=== PATIENT | female | born 1980 | race Caucasian/White ===

== ENCOUNTER 2019-08-17 11:56 | Emergency (ER) | payer BC, OTHER, MEDICAID, SELFPAY ==
--- NOTE | ~2019-08-17 | XR_ITS ---
EXAMINATION: XR chest 1V portable INDICATION: Cough and shortness of breath TECHNIQUE: Portable AP chest at 1308 hours COMPARISON: 11/16/2005 FINDINGS: The lungs are free of acute opacities. There is no pleural effusion or pneumothorax. The ca rdiomediastinal silhouette is normal. The visualized bones and soft tissues are unremarkable. IMPRESSION: 1. No acute cardiopulmonary abnormality. Reviewed, dictated and finalized at location B.
[2019-08-17 11:59] VITALS: BP 141/78; PULSE 86; RESP 20; TEMP 36.8; O2SAT 100
[2019-08-17 12:08] VITALS: BP 147/86; BP 148/89; PULSE 83; PULSE 86; RESP 15; RESP 16; TEMP 37.4; O2SAT 100
--- NOTE | 2019-08-17 12:21 | ED.URI ---
HPI - URI/Sore Throat General Chief Complaint: Upper Respiratory Infection Stated Complaint: SOB x 1 week Time Seen by Provider: 08/17/19 12:08 Source: patient Mode of arrival: ambulatory Limitations: no limitations History of Present Illness HPI Narrative: Patient is a 39-year-old female who presents from her primary care physician's office for evaluation of cough and shortness of breath. Patient recently diagnosed with influenza in July, has had some continuous, chest pressure since that time. She reports worsening productive cough. No fever chills, nausea or vomiting. Patient reports difficulty in getting a deep breath. She reports symptoms are worse with exertion or when she is talking. Pain is currently dull, aching in nature over her chest. No leg swelling, leg pain, recent car or air travel. Patient does not take control. She does not smoke. No other coagulopathy or blood clot risk factors. Related Data Home Medications Medication Instructions Recorded Confirmed albuterol sulfate INHALATION 08/17/19 azithromycin 08/17/19 elagolix [Orilissa] mg 08/17/19 fluticasone propionate INTRANASAL 08/17/19 lorazepam 08/17/19 methylprednisolone mg 08/17/19 Allergies Allergy/AdvReac Type Severity Reaction Status Date / Time No Known Allergies Allergy Verified 08/17/19 13:41 Review of Systems Review of Systems: Narrative: CONSTITUTIONAL: Denies fever, chills, or sweats. EYES: Denies visual changes, redness, or discharge. ENT: Reports rhinorrhea, congestion, sore throat CARDIOVASCULAR: Reports chest pressure RESPIRATORY: Reports cough and shortness of breath GASTROINTESTINAL: Denies abdominal pain, nausea, vomiting, or diarrhea. GENITOURINARY: Denies dysuria or hematuria. SKIN: Denies rash or itching. MUSCULOSKELETAL: Denies back pain, joint pain, reports myalgias NEUROLOGIC: Denies headache, numbness, or weakness. [facility] Past Medical History Medical History (Updated 08/17/19 @ 14:45 by Patricia Bernard MD) Hypertension Surgical History Surgical History (Updated 08/17/19 @ 13:00 by Patricia Bernard MD) H/O tubal ligation Previous section Social History Social History (Updated 08/17/19 @ 13:00 by Patricia Bernard MD) Smoking status: Never smoker Alcohol intake: never Substance use: never Living arrangements: with family Gender identity (if verbalized by the patient): Female Exam Narrative: Exam Narrative: GENERAL: Awake, alert, conversant HEAD: Normocephalic, atraumatic. EYES: PERRLA and EOMI. ENT: Nares clear, no rhinorrhea or epistaxis. Mucous membranes moist. NECK: Supple. CHEST: No respiratory distress, breathing even and non labored, no hypoxemia, breath sounds are clear without wheezing or crackles HEART: Regular rate, sinus rhythm ABDOMEN:Non distended, non tender, no flank tenderness EXTREMITIES: Normal range of motion. No edema. SKIN: Warm, dry, no rash. NEURO:No focal deficits. Alert and oriented x3 Course Course Emergency Course: Patient presented for evaluation of shortness of breath and chest pain. At the time of initial assessment, ABCs are intact and vital signs are stable. Physical exam is unremarkable. Patient is well-appearing, no dyspnea on exam, no hypoxemia or increased work of breathing. Lung sounds are clear. IV access obtained and labs are drawn. EKG without acute ischemic changes, evidence of right heart strain or findings that would be concerning for PE. Laboratory work-up is reassuring. No detection in troponin. No elevation in d-dimer that would be consistent with PE. Chest x-ray is clear without evidence of pneumonia or opacities. Coronavirus markers are overall reassuring as well. At this point, patient was ambulated in the emergency department and did well without transient desaturation and oxygen levels. No recurrent abdominal pain. No flank pain. I advised that the patient is okay for discharge home, at this point her sym
--- NOTE | 2019-08-17 12:55 | ECG_ITS ---
Measurements Intervals [place] Rate: 69 P: 62 TX: 149 QRS: 35 QRSD: 93 T: 47 QT: 404 QTc: 434 Interpretive Statements SINUS RHYTHM NORMAL ECG Electronically Signed On 08-17-2019 13:16:44 CDT by Burak Obando D.O.
[2019-08-17 13:12] LABS: Basophils Percent Auto 0.6 % (0.2-1.2); Eosinophils Percent Auto 0.4 % (0-4.4); Hematocrit 44.9 % (37.0-47.0); Hemoglobin 14.6 g/dL (12.0-15.0); Immature Granulocyte Absolute 0.03 K/mm3 (0.00-0.031); Immature Granulocyte Percent A 0.4 % (0-0.5); Lymphocytes Absolute Auto 1.25 K/mm3 (0.9-3.2); Lymphocytes Percent Auto 18.2 % (18.3-44.2); Mean Corpuscular HGB Conc 32.5 g/dl (32-36); Mean Corpuscular Hemoglobin 28.4 pg (26-34); Mean Corpuscular Volume 87.4 fl (80-100); Mean Platelet Volume 10.5 fl (7.4-10.4); Monocytes Absolute Auto 0.4 K/mm3 (0.1-0.6); Neutrophils Absolute Auto 5.1 K/mm3 (1.3-6.7); Neutrophils Percent Auto 74.4 % (45.5-73.1); Platelet Count Result 230 k/mm3 (150-375); Red Blood Count 5.14 M/mm3 (4.2-5.4); Red Cell Distribution Width 13.6 % (11.5-14.5); White Blood Count 6.9 K/mm3 (4.5-10.0)
[2019-08-17 13:14] LABS: Add Urine Microscopic? NO; Appearance Urine Clear (Clear); Bilirubin Urine Negative (Negative); Blood Urine Negative (Negative); Color Urine Straw (Yellow); Glucose Urine UA Negative (Negative); Ketones Urine Negative (Negative); Leukocyte Esterase Ur Negative LEU/UL (Negative); Nitrate Urine Negative (Negative); Protein Urine Negative (Negative); Specific Grav Ur 1.011 (1.001-1.035); Urobilinogen Urine Negative mg/dL (<2.0)
[2019-08-17 13:26] LABS: Alanine Aminotransferase 23 U/L (4-35); Albumin Level 4.2 g/dL (3.5-5.1); Alkaline Phosphatase 56 U/L (38-126); Aspartate Amino Transferase 18 U/L (14-36); Bilirubin,Total 0.4 mg/dL (0.2-1.3); Blood Urea Nitrogen 16 mg/dL (7-17); CRP < 0.5 mg/dL (<1.0); Calcium 9.4 mg/dL (8.4-10.2); Carbon Dioxide 25 mmol/L (22-30); Chloride 106 mmol/L (98-107); Estimated CRCL calculation 107 ml/min; Estimated Glomerular Filt Rate > 60; Glucose 121 mg/dL (65-105); Lactate Dehydrogenase 288 U/L (313-618); Potassium 3.6 mmol/L (3.4-5.0); Sodium 139 mmol/L (137-145)
[2019-08-17 13:30] LABS: Partial Thromboplastin Time 22.4 SECONDS (22.3-36.8); Prothrombin Time 12.6 Seconds (11.1-14.7)
[2019-08-17 13:33] VITALS: BP 123/79; PULSE 71; RESP 10; O2SAT 97; O2SAT 98
[2019-08-17 13:35] LABS: Troponin I < 0.012 ng/mL (0.000-0.034)
[2019-08-17 13:52] LABS: D Dimer 0.27 ug/mL (<0.48)
[2019-08-17 15:15] VITALS: BP 132/72; PULSE 71; RESP 13; O2SAT 97
== END 2019-08-17 15:16 | disposition home or self-care (01) ==
PROVIDERS: Emergency Provider Emergency Medicine; PCP Family Medicine
DX: B34.9 Viral infection, unspecified (principal); R06.00 Dyspnea, unspecified; Z20.828 Contact with and (suspected) exposure to other viral communicable diseases; I10 Essential (primary) hypertension
CPT/HCPCS: 36415; 71045; 80053; 81003; 82728; 83615; 84484; 85025; 85380; 85610; 85730; 86140; 87081; 87880; 93005; 99284

== ENCOUNTER → 2019-12-26 09:20 | Outpatient (CLI) | payer BC, MEDICAID, SELFPAY ==
--- NOTE | ~2019-12-26 | DEXA_ITS ---
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 Exam Date: December 26, 2019 Accession number: [id number] Bone Density: Region BMD T-score Z-score Classification AP Spine (L1-L4) 1.227 1.6 1.8 Normal Femoral Neck (Left) 1.180 3.0 3.3 Normal Total Hip (Left) 1.321 3.1 3.3 Normal Femoral Neck (Right) 1.158 2.8 3.1 Normal Total Hip (Right) 1.266 2.7 2.8 Normal Total Hip Mean 1.294 2.9 3.1 Normal World Health Organization criteria for BMD impression classify patients as: Normal (T-score at or above -1.0), Osteopenia (T-score between -1.0 and -2.5), or Osteoporosis (T-score at or below -2.5). 10-year Fracture Risk: FRAX not reported because: Premenopausal woman All T-scores for Spine Total, Hip Total, Femoral Neck at or above -1.0 Clinical Information Provided by Patient: Has the following medical conditions: Asthma or Emphysema Patient maximum height was 68 Drinks caffeinated beverages Onset of menses at age 13 Premenopausal Number of children 4 Impression: The patient's bone mass is within expected range for age, gender and ethnicity. Discussion: BONE DENSITY IS WITHIN EXPECTED LIMITS FOR AGE, SEX AND RACE. Bone density is within expected limits for age, sex and race at all sites measured. The patient should follow a healthful lifestyle (good nutrition with adequate calcium and vitamin D, and appropriate weight-bearing exercise). Follow-Up: Consider repeating this study in 5 years or sooner if there is some new clinical indication. Reported by: SHARI on 12/26/2019 9:46:00 AM. Reviewed, dictated and finalized at location AMike ALVAREZ
== END ==
PROVIDERS: Visit Provider Obstetrics & Gynecology
DX: Z79.899 Other long term (current) drug therapy (principal)
CPT/HCPCS: 77080

== ENCOUNTER → 2020-01-30 11:18 | Outpatient (CLI) | payer BC, MEDICAID, SELFPAY ==
--- NOTE | ~2020-01-30 | US_ITS ---
EXAMINATION: US pelvic complete w TV DATE: 01/30/2020 12:01 INDICATION: Pelvic and peroneal pain. Patient scheduled for hysterectomy. Comparison:No prior studies for comparison. TECHNIQUE: Multiple transabdominal and endovaginal sonographic images of the pelvis performed. FINDINGS: The uterus measures 11.7 x 6 x 8 cm. There are fibroid changes in the uterus including a 1. 9 cm fibroid anteriorly in the 1 cm fibroid posteriorly. The endometrial complex measures 9 mm. The right ovary measures 2.3 x 1.6 x 2.7 cm and the left ovary measures 2.1 x 2 x 3.7 cm. There are small follicles in each ovary. There is no free fluid in the pelvis. There are no abnormal masses seen on either side. IMPRESSION: 1. Enlarged fibroid uterus. Reviewed, dictated and finalized at location A. IMPRESSION: 1. Enlarged fibroid uterus.
== END ==
PROVIDERS: PCP Family Medicine; Visit Provider Obstetrics & Gynecology
DX: R10.2 Pelvic and perineal pain (principal); D25.9 Leiomyoma of uterus, unspecified
CPT/HCPCS: 76830; 76856

== ENCOUNTER 2020-02-01 00:04 | Outpatient (CLI) | payer BC, MEDICAID, SELFPAY ==
[2020-02-01 18:02] LABS: SARS-CoV-2 RNA PCR Negative
== END 2020-02-01 00:05 | disposition home or self-care (01) ==
LOC: ANHCOVIDDT 00:04
PROVIDERS: PCP Family Medicine; Visit Provider Obstetrics & Gynecology
DX: Z01.812 Encounter for preprocedural laboratory examination (principal); Z20.828 Contact with and (suspected) exposure to other viral communicable diseases
CPT/HCPCS: 87635; C9803; U0003

== ENCOUNTER 2020-02-04 00:31 | Day surgery (SDC) | payer BC, MEDICAID, SELFPAY ==
[2020-01-28 15:23] VITALS: BMI 36.9
--- NOTE | 2020-02-01 14:50 | PM.IMHP ---
H&P: HPI History of Present Illness Date/Time: 02/01/20 14:50 Chief complaint: Endometriosis,Pelvic Pain,Menometrorrhagia Narrative: Litzy Aponte is a 39 year old female with pelvic pain that improved with orilissa, but she finished 6 months and was advised to stop. She had normal DEXA but prefers not to use orilissa off label. She has bleeding almost every day, never heavy. She also c/o deep dyspareunia Review of Systems Review of Systems: All systems reviewed & are unremarkable except as noted in HPI and below PMFSH Past Medical History Medical History Acid reflux Anxiety Asthma Carpal tunnel syndrome Depression Hyperlipidemia Hypertension Irritable bowel syndrome Vaginal delivery X2 08/2005 Full term male 6lbs 12.5oz 06/2004 Pre term male SAB or demise. Pt. only documented that it was PT and male Surgical History Surgical History H/O tubal ligation History of ankle surgery Previous section X2 02/2007 male 10lbs 10oz 02/2009 male 9lbs 5oz Family History Family History Mother Breast cancer Hypertension Grandparent Breast cancer Other Breast cancer Social History Social History Smoking status: Never smoker Alcohol intake: never Substance use: never Gender identity (if verbalized by the patient): Female Spiritual care concerns: No Meds Home Medications and Allergies Home Medications Medication Instructions Recorded Confirmed Type fluticasone propionate 1 spray INTRANASAL DAILY 08/17/19 01/28/20 History lorazepam 0.5 mg PO DAILY PRN 08/17/19 01/28/20 History albuterol sulfate 90 mcg/actuation 1 inhalation INHALATION Q4H PRN 12/13/19 01/28/20 History aerosol inhaler levocetirizine 5 mg tablet 5 mg PO DAILY 12/13/19 01/28/20 History mometasone 50 mcg/actuation nasal 2 spray NASAL DAILY 01/25/20 01/28/20 History spray ascorbic acid (vitamin C) [Vitamin 1 g PO DAILY 01/28/20 01/28/20 History C] atorvastatin 40 mg PO QPM 01/28/20 01/28/20 History cholecalciferol (vitamin D3) 125 mcg PO DAILY 01/28/20 01/28/20 History [Vitamin D3] cyanocobalamin (vitamin B-12) 500 mcg PO DAILY 01/28/20 01/28/20 History [Vitamin B-12] montelukast 10 mg PO DAILY 01/28/20 01/28/20 History zinc 25 mg PO DAILY 01/28/20 01/28/20 History Allergies Allergy/AdvReac Type Severity Reaction Status Date / Time No Known Allergies Allergy Verified 01/28/20 15:23 Exam Const: General: no acute distress Resp: Auscultation: clear to auscultation bilaterally Cardio: Rate: regular rate Rhythm: regular rhythm GI: Inspection: non-distended GI Palp: Yes Soft to palpation and No Tenderness to palpation present (GI) : Other: Uterus normal size, nontender, mobile, smooth. Adnexal nontender with no masses Psych: Mental Status: mental status grossly normal Assessment and Plan Assessment and plan (1) Endometriosis: Code(s): N80.9 - Endometriosis, unspecified Status: Acute Assessment and Plan: She opts for TLH/BSO and signed consent after risks, benefits, complications, and alternatives discussed. She is aware removing ovaries will put her into menopause. She expressed understanding and wishes to proceed. (2) Menometrorrhagia: Code(s): N92.1 - Excessive and frequent menstruation with irregular cycle Status: Acute (3) Deep dyspareunia: Code(s): N94.12 - Deep dyspareunia Status: Acute
[2020-02-04] VITALS (14 sets, daily range): BP systolic 109–135; BP diastolic 58–95; PULSE 54–81; RESP 12–20; TEMP 36.5–37; O2SAT 92–100
--- NOTE | 2020-02-04 11:17 | WPDANESEPPF ---
Anes - Initial Pre Proc Eval Procedure: Operation Date: 02/04/20 14:00 Proposed Procedures p Total Laparoscopic Hysterectomy With Bilateral Salpingo-Oophorectomy - Diane Sheffield MD Date/Time: 02/04/20 11:17 Surgeon: Diane Sheffield MD Pre Op Diagnosis: Endometriosis,Pelvic Pain,Menometrorrhagia Patient Data Age: 39 Gender: F Height: 5 ft 7 in Weight: 107.05 kg Allergies Allergy/AdvReac Type Severity Reaction Status Date / Time No Known Allergies Allergy Verified 02/11/20 08:50 Home Medications Medication Instructions Recorded Confirmed Type fluticasone propionate 1 spray INTRANASAL DAILY 08/17/19 02/04/20 History lorazepam 0.5 mg PO DAILY PRN 08/17/19 02/04/20 History albuterol sulfate 90 mcg/actuation 1 inhalation INHALATION Q4H PRN 12/13/19 02/04/20 History aerosol inhaler levocetirizine 5 mg tablet 5 mg PO DAILY 12/13/19 02/04/20 History mometasone 50 mcg/actuation nasal 2 spray NASAL DAILY 01/25/20 01/28/20 History spray ascorbic acid (vitamin C) [Vitamin 1 g PO DAILY 01/28/20 02/04/20 History C] atorvastatin 40 mg PO QPM 01/28/20 02/04/20 History cholecalciferol (vitamin D3) 125 mcg PO DAILY 01/28/20 02/04/20 History [Vitamin D3] cyanocobalamin (vitamin B-12) 500 mcg PO DAILY 01/28/20 02/04/20 History [Vitamin B-12] montelukast 10 mg PO DAILY 01/28/20 01/28/20 History zinc 25 mg PO DAILY 01/28/20 01/28/20 History hydrocodone-acetaminophen 1 tab PO Q4H PRN #30 tablet 02/05/20 Rx ibuprofen 600 mg PO Q6H PRN #60 tablet 02/05/20 Rx estradiol 1 mg tablet 1 mg PO DAILY #90 tablet 02/07/20 Rx sulfamethoxazole 800 1 tablet PO Q12H #14 tablet 02/18/20 Rx mg-trimethoprim 160 mg tablet Patient hx anesthesia problems: none Family hx anesthesia problems: none PMFSH Past Medical History Medical History Acid reflux Anxiety Asthma Carpal tunnel syndrome Depression Hyperlipidemia Hypertension Irritable bowel syndrome Vaginal delivery X2 08/2005 Full term male 6lbs 12.5oz 06/2004 Pre term male SAB or demise. Pt. only documented that it was PT and male Surgical History Surgical History H/O tubal ligation History of ankle surgery Previous section X2 02/2007 male 10lbs 10oz 02/2009 male 9lbs 5oz Family History Family History Mother Breast cancer Hypertension Grandparent Breast cancer Other Breast cancer Social History Social History Smoking status: Never smoker Alcohol intake: never Substance use: never Gender identity (if verbalized by the patient): Female Spiritual care concerns: No Anes - Eval Final PreProcedure Day of Procedure 02/04/20 11:17 Patient weight: obese Heart: regular rate and rhythm Lungs: clear to auscultation Airway: Mallampati scale class II Neurological: alert and oriented Last oral intake: >/= 8 hours ASA classification: III Emergent: no Anesthetic plan: proceed Anesthesia type and monitoring: general ETT and standard monitoring Informed Consent: The patient's anesthetic plan and its attendant risks and benefits were discussed with the patient/family/POA. Questions were solicited and answers provided to the satisfaction of the patient/family/POA.
--- NOTE | 2020-02-04 12:55 | WPDHPUPDATE1 ---
History and Physical Update Update Date/Time: 02/04/20 12:55 History and Physical has been reviewed, including an updated exam of the patient. There are NO changes in the patient's condition. Risks, benefits, and alternatives have been discussed and questions answered. Patient agrees to proceed with procedure.
[2020-02-04] MEDS: ACETAMINOPHEN 500 MG TABLET 1000 MG PO (13:07)
[2020-02-04] MEDS: KETOROLAC 15 MG/ML VIAL (*BKC) IV PUSH (13:07)
[2020-02-04] MEDS: LACTATED RINGERS 1,000 ML 30 ML IV CONT ×2 (13:07→15:23)
[2020-02-04] MEDS: ceFAZolin 2 GM/D5W 50 ML 2 GM/50 ML BAG IVPB (13:27)
[2020-02-04] MEDS: BUPIVACAINE/EPINEPHRINE 0.5% 10 ML VIAL 30 ML INFILTRATE (14:08)
--- NOTE | 2020-02-04 15:11 | PM.PROC ---
Procedure Note - Detailed Date of procedure: 02/04/20 Pre-op diagnosis: Endometriosis,Pelvic Pain,Menometrorrhagia Post-op diagnosis: same Procedure performed: TLH/BSO Description of procedure: She was taken to the operating room where general anesthesia was obtained. She was prepared and draped in the normal sterile fashion in the dorsal lithotomy position. Marcaine was injected supraumbilically. A 5 mm skin incision was made in the supraumbilical fold with a scalpel. A 5 mm non bladed trocar was placed with the camera in the trocar under direct visualization into the peritoneal cavity. Insufflation was begun and she was placed in Trendelenburg. A 10 mm trocar was placed in the right lower quadrant under direct visualization. Another 5 mm trocar was placed in the left lower quadrant under direct visualization. Inspection of the pelvis revealed the findings as noted above. The right infundibulopelvic ligament was grasped coagulated and transected using the Harmonic scalpel. The mesial salpinx was serially clamped and transected. The right round ligament was clamped and transected. The bladder flap was then created from the right side. Next the left infundibulopelvic ligament nasal salpinx and round ligaments were all clamped coagulated and transected using the Harmonic scalpel. The bladder flap was created from the left side meeting the flap from the right. The bladder was pushed down further with a laparoscopic Kittner. The bladder flap was created even further using the Harmonic scalpel. The right uterine artery was skeletonized clamped coagulated and transected with excellent hemostasis visualized. Another several bites were taken down the broad ligament until the level of the uterosacral ligament had been reached. The left uterine artery was then skeletonized clamped coagulated and transected using the Harmonic scalpel. The broad ligament was serially clamped and transected on the left side until the level of the uterosacral ligament had been reached. Both uterosacral ligaments were divided partially. Sponge stick was placed in the vagina and pressed against the anterior cul-de-sac. The Harmonic scalpel was used to make a colpotomy incision against the sponge stick. The vagina was then circumferentially incised hugging against the cervix until the entire cervix was freed from the surrounding vaginal tissue. The pelvis was irrigated. Hemostasis was assured. The cervix and uterus were pressed down as far as possible into the vaginal canal. Attention was then turned to the vagina. A speculum was placed. The cervix was grasped with a single-tooth tenaculum. The uterus cervix tubes and ovaries were all brought together through the vagina without difficulty. A moist blue towel was then placed in the vagina to help hold in pneumoperitoneum. Attention was turned back to the abdomen. The vaginal cuff was closed using 0 Vicryl interrupted sutures. A total of 3 sutures were used for reapproximation. The pelvis was copiously irrigated. All operative sites were noted to be hemostatic. The right lower quadrant trocar was removed. The Rocco-Angel device along with an 0 Vicryl was used to close the fascia of the right lower quadrant incision. The pneumoperitoneum was allowed to escape. All trocars were removed. All skin incisions were closed using 4 0 Monocryl in subcuticular fashion. She tolerated the procedure well. Sponge, lap, needle, and instrument counts were correct x2. She was taken to the recovery room in stable condition. Anesthesia: GETA Surgeon: Diane Sheffield MD Estimated blood loss (mL): 100 Drains: Yes (Curran) Packing: No Pathology: yes Complications: No immediate complications Condition: stable Disposition: PACU Findings: Enlarged uterus, normal tubes/ovaries, liver, appendix. Adhesions of omentum to anterior abdominal wall
[2020-02-04] MEDS: fentaNYL CITRATE INJ (*CRX) 100 MCG/2 ML VIAL 25 MCG IV PUSH ×2 (15:50→15:58)
[2020-02-04] MEDS: diphenhydrAMINE HCl INJ 50 MG/ML VIAL 25 MG IV PUSH (16:17)
--- NOTE | 2020-02-04 16:30 | PC.NURSE ---
This patient, Litzy Aponte, was received from PACU on 02/04/20 at 1630. Personal belongings list checked and signed. Patient/family oriented to unit policies and routines
[2020-02-04] MEDS: DEXTROSE 5%/LACTATED RINGERS 1,000 ML 125 ML IV CONT (16:41)
[2020-02-04] MEDS: METOCLOPRAMIDE HCL INJ 10 MG/2 ML VIAL IV PUSH (17:25)
[2020-02-04] MEDS: MORPHINE SULFATE (*CRX) 4 MG/ML INJ IV PUSH ×2 (17:28→22:16)
[2020-02-04] MEDS: KETOROLAC 30 MG/ML VIAL (*BKC) IV PUSH (19:45)
[2020-02-04] MEDS: ONDANSETRON INJ 4 MG/2 ML VIAL IV PUSH (19:46)
[2020-02-04] MEDS: ENOXAPARIN 40 MG/0.4 ML SYRINGE SUB-Q (19:46)
[2020-02-05 00:18] VITALS: BP 107/65; PULSE 63; RESP 18; TEMP 36.7; O2SAT 98
[2020-02-05] MEDS: HYDROcodone/acetaminophen (*CRX) 5-325 MG TABLET 1 TAB PO ×2 (05:24→08:48)
[2020-02-05 05:50] LABS: Basophils Percent Auto 0.4 % (0.2-1.2); Eosinophils Percent Auto 0.4 % (0-4.4); Hematocrit 39.4 % (37.0-47.0); Hemoglobin 12.8 g/dL (12.0-15.0); Immature Granulocyte Absolute 0.02 K/mm3 (0.00-0.031); Immature Granulocyte Percent A 0.3 % (0-0.5); Lymphocytes Absolute Auto 1.56 K/mm3 (0.9-3.2); Lymphocytes Percent Auto 21.9 % (18.3-44.2); Mean Corpuscular HGB Conc 32.5 g/dl (32-36); Mean Corpuscular Hemoglobin 29.2 pg (26-34); Mean Corpuscular Volume 89.7 fl (80-100); Mean Platelet Volume 11.6 fl (7.4-10.4); Monocytes Absolute Auto 0.6 K/mm3 (0.1-0.6); Monocytes Percent Auto 7.9 % (2.6-8.5); Neutrophils Absolute Auto 4.9 K/mm3 (1.3-6.7); Neutrophils Percent Auto 69.1 % (45.5-73.1); Platelet Count Result 201 k/mm3 (150-375); Red Blood Count 4.39 M/mm3 (4.2-5.4); Red Cell Distribution Width 13.4 % (11.5-14.5); White Blood Count 7.1 K/mm3 (4.5-10.0)
[2020-02-05 06:06] LABS: Anion Gap 2 mmol/L (8-16); Blood Urea Nitrogen 9 mg/dL (7-17); Calcium 8.4 mg/dL (8.4-10.2); Carbon Dioxide 29 mmol/L (22-30); Chloride 106 mmol/L (98-107); Estimated CRCL calculation 135 ml/min; Estimated Glomerular Filt Rate > 60; Glucose 100 mg/dL (65-105); Potassium 3.9 mmol/L (3.4-5.0); Sodium 137 mmol/L (137-145)
--- NOTE | 2020-02-05 07:43 | PM.GYNPNOP ---
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: Procedures Operation Date: 02/04/20 14:00 Actual Procedures Side Surgeon p Total Laparoscopic Hysterectomy With Bilateral Salpingo-Oophorectomy Bilateral Diane Sheffield MD Postoperative day: 1 (s/p hysterectomy) Postoperative status: doing well Postoperative plan: routine post-op care and discharge (and follow up in office in 1 week) Time Spent With Patient Time: Total time spent is greater than 50% in coordination of care (as documented) at patient's floor/unit and/or counseling patient: Time with patient: less than 15 minutes [employer] TE[employer]ER- PN:Subj Post-Op Subjective Date/time seen: 02/05/20 07:43 Subjective: patient has no complaints, pain is well controlled and other (Tolerating regular diet. + flatus. 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 Vital Signs Vital Signs: Vital Signs - 24 hr 02/04/20 13:17 02/04/20 15:23 02/04/20 15:30 Temperature 36.5 C 37.0 C Pulse Rate 81 75 67 Respiratory Rate 18 14 14 Blood Pressure 133/60 114/59 L 133/95 H Pulse Oximetry 99 100 100 02/04/20 15:45 02/04/20 16:00 02/04/20 16:15 Temperature Pulse Rate 64 54 L 69 Respiratory Rate 16 12 12 Blood Pressure 109/58 L 109/58 L 127/70 Pulse Oximetry 100 100 99 02/04/20 16:30 02/04/20 16:45 02/04/20 17:00 Temperature 36.8 C Pulse Rate 60 60 63 Respiratory Rate 16 18 18 Blood Pressure 132/82 135/81 131/78 Pulse Oximetry 96 97 92 02/04/20 17:15 02/04/20 17:30 02/04/20 18:00 Temperature Pulse Rate 62 62 57 L Respiratory Rate 20 18 20 Blood Pressure 128/72 133/77 114/68 Pulse Oximetry 97 94 95 02/04/20 19:00 02/04/20 20:25 02/05/20 00:18 Temperature 36.5 C 36.7 C Pulse Rate 65 65 63 Respiratory Rate 18 16 18 Blood Pressure 125/72 125/72 107/65 Pulse Oximetry 98 98 98 Intake/Output Intake/Output: Intake & Output 02/02/20 02/03/20 02/04/20 02/05/20 23:59 23:59 23:59 23:59 Intake Total 650 1000 Output Total 100 1500 Balance 550 -500 Meds/Results Medications: Active Medications Generic Name Dose Route Start Last Admin Trade Name Freq PRN Reason Stop Dose Admin Hydrocodone Bitart/Acetaminophen 1 tab 02/04/20 16:23 02/05/20 05:24 Magnet 5-325 Mg PO 1 tab Q3H PRN Administration Pain Rated 5 or Less Albuterol 1 puff 02/04/20 16:23 Proventil Hfa INHALATION Q4H PRN Shortness Of Breath Ascorbic Acid 1,000 mg 02/05/20 09:00 Vitamin C PO DAILY [facility] Atorvastatin Calcium 40 mg 02/04/20 18:00 02/04/20 20:37 Lipitor PO Not Given QPM [facility] Cyanocobalamin 500 mcg 02/05/20 09:00 Vitamin B-12 Tab PO DAILY [facility] Docusate Sodium 100 mg 02/04/20 17:00 02/04/20 18:47 Colace Capsule PO Not Given BID [facility] Enoxaparin Sodium 40 mg 02/04/20 21:00 02/04/20 19:46 Lovenox SUB-Q 40 mg DAILY [facility] Administration Estradiol 1 mg 02/05/20 09:00 Estrace PO QAM [facility] Fluticasone Propionate 1 spray 02/05/20 09:00 Flonase 0.05% Nasal Freedom NASAL DAILY [facility] Dextrose/Lactated Ringer's 1,000 mls @ 125 mls/hr 02/04/20 16:23 02/05/20 04:03 Dextrose 5%/Lactated Ringers IV CONT Not Given .Q8H JENNIE Ibuprofen 600 mg 02/04/20 16:23 Motrin PO Q6H PRN Cramping Ketorolac Tromethamine 30 mg 02/04/20 16:23 02/04/20 19:45 Toradol Inj IV PUSH 02/09/20 16:24 30 mg Q6H PRN Administration Pain Rated 4-6 Lorazepam 0.5 mg 02/04/20 16:23 Ativan Tablet PO DAILY PRN Anxiety Metoclopramide HCl 10 mg 02/04/20 16:23 02/04/20 17:25 Reglan IV PUSH 10 mg Q6H PRN Administration Nausea Montelukast Sodium
--- NOTE | 2020-02-05 07:44 | P.DS_ITS ---
DS: Admitting Diagnosis Admitting Diagnosis Admitting Diagnosis: Endometriosis,Pelvic Pain,Menometrorrhagia DS: Discharge Diagnosis Discharge Diagnosis (1) Endometriosis: Code(s): N80.9 - Endometriosis, unspecified Status: Acute DS: Summary Status at Discharge Functional status at discharge: independent ambulation Overall status at discharge: patient is progressing back to baseline Time Spent with Patient Time attestation: Total time spent providing and/or coordinating discharge services: Time spent: Less than 30 minutes DS: Data Data Completed and Pending Pending studies at discharge: Pending at discharge 02/04/20 14:49 Surgical [PTH] Routine Labs on day of discharge: Labs from last 24 hours 02/05/20 02/05/20 05:08 05:08 WBC 7.1 RBC 4.39 Hgb 12.8 Hct 39.4 MCV 89.7 MCH 29.2 MCHC 32.5 RDW 13.4 Plt Count 201 MPV 11.6 H Immature Gran % (Auto) 0.3 Neut % (Auto) 69.1 Lymph % (Auto) 21.9 [place] % (Auto) 7.9 Eos % (Auto) 0.4 Baso % (Auto) 0.4 Lymph # (Auto) 1.56 [place] # (Auto) 0.6 Eos # (Auto) 0.0 Baso # (Auto) 0.0 Abs Immat Gran (auto) 0.02 Absolute Neuts (auto) 4.9 Absolute Nucleated RBC 0.0 Nucleated RBC % 0.0 Sodium 137 Potassium 3.9 Chloride 106 Carbon Dioxide 29 Anion Gap 2 L BUN 9 D Creatinine 0.60 L Estim Creat Clear Calc 135 Estimated GFR > 60 Glucose 100 Calcium 8.4 Discharge Plan Discharge Patient Disposition: Home, Self-Care Stand Alone Forms: General Discharge Instructions Follow-up/Referrals: Diane Sheffield MD [Physician] - 1 Week Discharge Medications: New hydrocodone-acetaminophen 5-325 mg Tablet 1 tab PO Q4H PRN (Reason: Pain Rated 5 Or Less) Qty: 30 RF: 0 ibuprofen 600 mg Tablet 600 mg PO Q6H PRN (Reason: Cramping) Qty: 60 RF: 0 Continued mometasone [Nasonex] 50 mcg/actuation spray,non-aerosol 2 spray NASAL DAILY RF: 0 levocetirizine [Xyzal] 5 mg tablet 5 mg PO DAILY RF: 0 albuterol sulfate [ProAir HFA] 90 mcg/actuation HFA aerosol inhaler 1 inhalation INHALATION Q4H PRN (Reason: Shortness Of Breath) RF: 0 lorazepam 0.5 mg tablet 0.5 mg PO DAILY PRN (Reason: Anxiety) RF: 0 fluticasone propionate 50 mcg/actuation spray,suspension 1 spray INTRANASAL DAILY RF: 0 atorvastatin 40 mg tablet 40 mg PO QPM RF: 0 montelukast 10 mg tablet 10 mg PO DAILY RF: 0 ascorbic acid (vitamin C) [Vitamin C] 1,000 mg Tablet 1 g PO DAILY RF: 0 cyanocobalamin (vitamin B-12) [Vitamin B-12] 500 mcg Tablet 500 mcg PO DAILY RF: 0 zinc 50 mg Tablet 25 mg PO DAILY RF: 0 cholecalciferol (vitamin D3) [Vitamin D3] 125 mcg (5,000 unit) Tablet 125 mcg PO DAILY RF: 0 Primary Care Provider: Jose,Kori Santiago Attending physician on admission: Diane Sheffield Quality VTE Prophylaxis VTE prophylaxis: mechanical ordered and pharmacologic ordered
[2020-02-05 08:35] VITALS: BP 112/59; PULSE 51; RESP 16; TEMP 37.3; O2SAT 100
[2020-02-05] MEDS: estradioL 1 MG TABLET PO (08:48)
[2020-02-05] MEDS: DOCUSATE SODIUM 100 MG CAPSULE PO (08:48)
[2020-02-05] MEDS: IBUPROFEN 600 MG TABLET PO (08:49)
[2020-02-05] MEDS: LORATADINE 10 MG TABLET PO (10:36)
[2020-02-05] MEDS: SIMETHICONE 80 MG TAB.CHEW PO (11:18)
== END 2020-02-05 12:39 | disposition home or self-care (01) ==
LOC: ANHSURGERY 12:03 → ANHOB2 16:24
PROVIDERS: PCP Family Medicine; Visit Provider Obstetrics & Gynecology
PROC: 0UT9FZZ Resection of Uterus, Via Natural or Artificial Opening With Percutaneous Endoscopic Assistance (ICD-10-PCS; CPT 58571; principal; 2020-02-04 14:00)
DX: N80.0 Endometriosis of uterus (principal); N92.1 Excessive and frequent menstruation with irregular cycle; N94.12 Deep dyspareunia; E78.5 Hyperlipidemia, unspecified; I10 Essential (primary) hypertension; K58.9 Irritable bowel syndrome, unspecified; N83.8 Other noninflammatory disorders of ovary, fallopian tube and broad ligament; N83.02 Follicular cyst of left ovary; N83.01 Follicular cyst of right ovary
CPT/HCPCS: 58571; 36415; 80048; 85025; 88307; 99199; A9270; J0690; J1100; J1170; J1200; J1650; J1885; J2250; J2270; J2370; J2405; J2704; J2710; J2765; J3010; J7030; J7120; J7121

== ENCOUNTER 2020-04-07 10:22 | Outpatient (NON) | payer BC, MEDICAID, SELFPAY ==
[2020-04-08 19:16] LABS: SARS-CoV-2 RNA PCR Negative
== END 2020-04-07 10:23 ==
PROVIDERS: PCP Family Medicine; Visit Provider Family Medicine
DX: R50.9 Fever, unspecified (principal); Z20.828 Contact with and (suspected) exposure to other viral communicable diseases
CPT/HCPCS: 87635; C9803; U0003

== ENCOUNTER 2020-05-23 10:33 | Outpatient (CLI) | payer BC, MEDICAID, SELFPAY ==
--- NOTE | ~2020-05-23 | MM_ITS ---
EXAMINATION: MM screening [facility] BI w aj HISTORY: Screening TECHNIQUE: Craniocaudal and mediolateral oblique 3-D tomosynthesis images were obtained and synthetic 2-D images were generated. CAD analysis was submitted and interpreted. COMPARISON: Comparison to multiple prior studies sequentially, with oldest reviewed study dated 12/2012. BREAST PARENCHYMAL COMPOSITION: There are scattered areas of fibroglandular density. FINDINGS: There is no evidence of suspicious mass, calcification, or architectural distortion to sugg est malignancy in either breast. There has been no suspicious interval change. IMPRESSION: 1. No mammographic evidence of malignancy. 2. Recommend routine screening mammography in one year. BI-RADS Category 1: Negative Reviewed, dictated and finalized at location A. ENT ADMITTING REPRESENTATIVE
== END 2020-05-23 10:34 | disposition home or self-care (01) ==
LOC: ANHIMG 10:37
PROVIDERS: PCP Family Medicine; Visit Provider Obstetrics & Gynecology
DX: Z12.31 Encounter for screening mammogram for malignant neoplasm of breast (principal)
CPT/HCPCS: 77063; 77067

== ENCOUNTER 2021-01-02 12:06 | Emergency (ER) | payer BC, MEDICAID, SELFPAY ==
--- NOTE | ~2021-01-02 | CT_ITS ---
EXAMINATION: CTA chest PE protocol DATE: 01/02/2021 16:12 INDICATION: Medial chest pain and shortness of breath TECHNIQUE: Computed tomography (CT) pulmonary angiogram of the chest was performed with 100 mL Omnipa que-350 intravenous contrast. Additional 3D reconstructions utilizing coronal maximum intensity proje ction (MIP) were performed. Iterative reconstruction technique was employed. The dose-length product was 953.32 mGy-cm. COMPARISON: None FINDINGS: Excellent contrast opacification of the pulmonary arteries. There is mild streak artifact from dense contrast in the superior vena cava and right atrium. Mild scattered respiratory motion artifact which does not significantly limit evaluation. No pulmonary embolism. Subtle mosaic attenuation with regio ns of more lucent air trapping most prominent at the anteromedial left apex consistent with small air way disease. No pneumonia, pulmonary edema or pleural effusion or pneumothorax. Heart size is normal. No pericardial effusion. Thoracic aorta is normal in caliber with no dissection. No pathologically e nlarged thoracic lymphadenopathy. 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 Visualized upper abdomen is otherwise unremarkable. Bones are unremarka ble. IMPRESSION: 1. No pulmonary embolism. 2. Small regions of subsegmental air trapping consistent with small airway disease including asthma. 3. 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 Reviewed, dictated and finalized at location B. IMPRESSION: 1. No pulmonary embolism. 2. Small regions of subsegmental air trapping consistent with small airway dise ase including asthma. 3. 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
--- NOTE | ~2021-01-02 | XR_ITS ---
EXAMINATION: XR chest 2V EXAM DATE: 01/02/2021 12:39 INDICATION: Chest pain and tightness. TECHNIQUE: Frontal and lateral projections of the chest obtained and reviewed. Comparison is made to prior examination from 08/17/2019. FINDINGS: The lungs are clear. There are no pleural effusions. The cardiomediastinal silhouette is within normal limits. There is no pneumothorax suspected. The bones and soft tissues are unremarkab le. IMPRESSION: No acute cardiopulmonary findings. Reviewed, dictated and finalized at location A.
[2021-01-02 12:10] VITALS: BP 158/98; PULSE 68; RESP 12; TEMP 36.6; O2SAT 99
--- NOTE | 2021-01-02 12:15 | PC.NURSE ---
during initial assessment, pt found to be high risk for suicide. ed charge made aware. necessary precautions taken.
--- NOTE | 2021-01-02 12:18 | ED.CHESTPAIN ---
HPI - Chest Pain General Chief Complaint: Chest Pain Stated Complaint: CP Time Seen by Provider: 01/02/21 12:10 Source: patient Mode of arrival: ambulatory Limitations: no limitations History of Present Illness HPI narrative: Patient is a 40-year-old female complaining of chest pain, midsternal, sharp, 5 out of 10, worse with deep inspiration that started 2 weeks ago. Patient denies any shortness of breath, abdominal pain, nausea, vomiting, diaphoresis, fever or chills. Related Data Home Medications Medication Instructions Recorded Confirmed fluticasone propionate 1 spray INTRANASAL DAILY 08/17/19 12/19/20 lorazepam 0.5 mg PO DAILY PRN 08/17/19 12/19/20 albuterol sulfate 90 mcg/actuation 1 inhalation INHALATION Q4H PRN 12/13/19 12/19/20 aerosol inhaler levocetirizine 5 mg tablet 5 mg PO DAILY 12/13/19 12/19/20 atorvastatin 40 mg PO QPM 01/28/20 12/19/20 sertraline 100 mg tablet 150 mg PO DAILY 12/19/20 12/19/20 Allergies Allergy/AdvReac Type Severity Reaction Status Date / Time No Known Allergies Allergy Verified 01/02/21 12:20 Review of Systems Review of Systems: All systems reviewed & are unremarkable except as noted in HPI and below Constitutional: Constitutional: Denies body ache(s), Denies chills, Denies excessive sweating, Denies fatigue, Denies fever(s), Denies headache(s), Denies lethargy, Denies malaise, Denies weakness and Denies weight loss Eyes: Eyes: Denies blurry vision, Denies change in vision and Denies loss of vision ENT: Denies dizziness, Denies ear discharge, Denies headache(s), Denies lip swelling, Denies epistaxis, Denies nasal congestion, Denies neck pain, Denies throat swelling and Denies tongue swelling Cardiovascular: Cardiovascular: Denies diaphoresis, Denies rapid heart rate, Denies edema, Denies irregular heart rhythm, Denies lightheadedness, Denies palpitations, Denies dyspnea and Denies dyspnea on exertion Respiratory: Respiratory: Denies chest congestion, Denies cough, Denies hemoptysis, Denies dyspnea and Denies dyspnea on exertion Gastrointestinal: Gastrointestinal: Denies abdominal pain, Denies melena, Denies hematochezia, Denies diarrhea, Denies nausea, Denies vomiting and Denies hematemesis Musculoskeletal: Musculoskeletal: Denies abnormal gait, Denies deformity, Denies joint swelling, Denies limited range of motion, Denies neck pain and Denies numbness Neurologic: Denies Abnormal speech present, Denies abnormal gait, Denies confusion, Denies dizziness, Denies headache(s), Denies focal weakness, Denies loss of vision, Denies numbness, Denies Other visual disturbances, Denies Sensory deficit (Neuro) and Denies weakness Psychiatric: Psychiatric: Denies confusion, Denies depression, Denies auditory hallucinations, Denies homicidal ideation and Denies suicidal ideation Endocrine: Endocrine: Denies cold intolerance, Denies excessive sweating, Denies fatigue, Denies heat intolerance and Denies palpitations Hematologic/Lymphatic: Hematologic/Lymphatic: Denies easy bleeding and Denies easy bruising Allergic/Immunologic: Allergic/Immunologic: Denies lip swelling, Denies throat swelling and Denies tongue swelling PMFSH Past Medical History Medical History Acid reflux Anxiety Asthma Carpal tunnel syndrome Depression Hyperlipidemia Hypertension Irritable bowel syndrome Vaginal delivery X2 08/2005 Full term male 6lbs 12.5oz 06/2004 Pre term male SAB or demise. Pt. only documented that it was PT and male Surgical History Surgical History H/O total hysterectomy H/O tubal ligation History of ankle surgery Previous section X2 02/2007 male 10lbs 10oz 02/2009 male 9lbs 5oz Family History Family History Mother Breast cancer Hypertension Grandparent Breast cancer Other Breast cancer Social
[2021-01-02 12:49] LABS: Basophils Percent Auto 0.3 % (0.2-1.2); Eosinophils Percent Auto 0.3 % (0-4.4); Hematocrit 45.5 % (37.0-47.0); Hemoglobin 14.8 g/dL (12.0-15.0); Immature Granulocyte Absolute 0.03 K/mm3 (0.00-0.031); Immature Granulocyte Percent A 0.3 % (0-0.5); Lymphocytes Absolute Auto 2.87 K/mm3 (0.9-3.2); Lymphocytes Percent Auto 26.7 % (18.3-44.2); Mean Corpuscular HGB Conc 32.5 g/dl (32-36); Mean Corpuscular Hemoglobin 28.3 pg (26-34); Mean Platelet Volume 10.7 fl (7.4-10.4); Monocytes Absolute Auto 0.8 K/mm3 (0.1-0.6); Monocytes Percent Auto 7.2 % (2.6-8.5); Neutrophils Percent Auto 65.2 % (45.5-73.1); Platelet Count Result 256 k/mm3 (150-375); Red Blood Count 5.23 M/mm3 (4.2-5.4); Red Cell Distribution Width 13.6 % (11.5-14.5); White Blood Count 10.7 K/mm3 (4.5-10.0)
[2021-01-02 12:57] LABS: Alanine Aminotransferase 19 U/L (4-35); Albumin Level 4.3 g/dL (3.5-5.1); Alkaline Phosphatase 72 U/L (38-126); Anion Gap 7 mmol/L (8-16); Aspartate Amino Transferase 21 U/L (14-36); Bilirubin,Total 0.4 mg/dL (0.2-1.3); Blood Urea Nitrogen 15 mg/dL (7-17); Calcium 9.1 mg/dL (8.4-10.2); Carbon Dioxide 25 mmol/L (22-30); Chloride 107 mmol/L (98-107); Estimated CRCL calculation 146 ml/min; Estimated Glomerular Filt Rate > 60; Glucose 104 mg/dL (65-110); Potassium 3.5 mmol/L (3.4-5.0); Sodium 139 mmol/L (137-145)
[2021-01-02 13:08] LABS: Troponin I < 0.012 ng/mL (0.000-0.034)
[2021-01-02 13:17] LABS: D Dimer 0.94 ug/mL (<0.48)
--- NOTE | 2021-01-02 13:48 | ECG_ITS ---
Measurements Intervals [place] Rate: 68 P: 65 VT: 147 QRS: 48 QRSD: 95 T: 38 QT: 422 QTc: 450 Interpretive Statements SINUS RHYTHM INCOMPLETE RIGHT BUNDLE BRANCH BLOCK LOW QRS VOLTAGE IN PRECORDIAL LEADS BORDERLINE T WAVE ABNORMALITY- ANTERIOR LEADS BASELINE ARTIFACT- I, II, III, AVF, V1-V5 BORDERLINE ECG Electronically Signed On 01-02-2021 14:07:15 CDT by Burak Obando D.O.
[2021-01-02 13:52] LABS: Acetaminophen < 10 ug/mL (10-30); Salicylate < 1.0 mg/dL (2-20)
[2021-01-02 13:55] LABS: Ethanol < 10 mg/dL (<10)
--- NOTE | 2021-01-02 13:59 | PC.NURSE ---
RN to bedside. Pt tearful in room stating she is frustrated that we had to remove her belongings. Pt informed the suicide risk questions are mandated by the state and asked to everyone. Pt informed the algorithm in the computer made her high risk d/t her answers: such as, past thoughts of driving her vehicle off the road or stating there is a gun in the home. Pt stating I didn't come in here for this, if I wouldn't known you were going to take my phone away and do all of this I would've just lied. I'm just going to lie next time . Pt reminded that it is my job as her RN to keep her safe and to take each answer seriously. Pt stating I've dealt with these feelings for years, my doctor is aware. Pt reminded again that all answers are taken seriously ad once she is medically cleared that Crisis will come talk to her. Pt asking if they can come now because she's doing nothing . Pt informed that test results needed to come back before Crisis could be called. Pt remains tearful.
[2021-01-02 14:03] VITALS: BP 145/88; PULSE 82; RESP 16; O2SAT 100
[2021-01-02 14:05] LABS: Amphetamine Screen Urine Negative (Negative); Barbiturate Screen Urine Negative (Negative); Benzodiazepines Screen Urine Negative (Negative); Cannabinoid Screen Urine Negative (Negative); Cocaine Screen Urine Negative (Negative); Methadone Screen Urine Negative (Negative); Opiate Screen Urine Negative (Negative); Phencyclidine Screen Urine Negative (Negative)
--- NOTE | 2021-01-02 15:20 | PC.NURSE ---
Melissa from Crisis to come evaluate patient.
[2021-01-02 16:24] LABS: Troponin I < 0.012 ng/mL (0.000-0.034)
--- NOTE | 2021-01-02 16:34 | PC.NURSE ---
Crisis at bedside.
--- NOTE | 2021-01-02 16:50 | PC.NURSE ---
Melissa with crisis came up with safety plan for patient. sitter dismissed from pt bedside. belongings returned.
[2021-01-02 17:20] VITALS: BP 138/89; PULSE 69; RESP 17; O2SAT 99
== END 2021-01-02 18:00 | disposition home or self-care (01) ==
PROVIDERS: Emergency Provider Emergency Medicine; PCP Family Medicine
DX: R07.89 Other chest pain (principal); J45.909 Unspecified asthma, uncomplicated; E78.5 Hyperlipidemia, unspecified; I10 Essential (primary) hypertension; K58.9 Irritable bowel syndrome, unspecified; K21.9 Gastro-esophageal reflux disease without esophagitis; F41.9 Anxiety disorder, unspecified; F32.9 Major depressive disorder, single episode, unspecified; I45.10 Unspecified right bundle-branch block; R94.31 Abnormal electrocardiogram [ECG] [EKG]; I72.2 Aneurysm of renal artery
CPT/HCPCS: 36415; 71046; 71275; 80053; 80307; 84443; 84484; 85025; 85380; 93005; 99284; Q9967

== ENCOUNTER 2021-01-16 15:07 | Emergency (ER) | payer BC, MEDICAID, SELFPAY ==
--- NOTE | ~2021-01-16 | XR_ITS ---
XR wrist RT min 3V 01/16/2021 15:38 INDICATION: Right wrist pain PROCEDURE: 4 views right wrist COMPARISON: No prior studies for comparison. FINDINGS: Fracture, dislocation or subluxation is not identified. The soft tissues appear within norm al limits. No foreign bodies are identified. IMPRESSION: 1: NO ACUTE BONE OR JOINT ABNORMALITY IDENTIFIED. Reviewed, dictated and finalized at location A.
[2021-01-16 15:18] VITALS: BP 133/75; PULSE 73; RESP 20; TEMP 36.8; O2SAT 99
--- NOTE | 2021-01-16 15:39 | ED.UPPEXIN ---
HPI - Extremity Injury (Upper) General Chief Complaint: Extremity Injury, Upper Stated Complaint: Right Wrist Pain Time Seen by Provider: 01/16/21 15:40 Source: patient and RN notes reviewed Mode of arrival: ambulatory Limitations: no limitations History of Present Illness HPI narrative: 40-year-old female presents to the [facility] with complaints of right wrist pain for 1 week. Patient is right-hand dominant. Had been taking ibuprofen and wearing a splint Unsure of any direct trauma or injury Related Data Home Medications Medication Instructions Recorded Confirmed lorazepam 0.5 mg PO DAILY PRN 08/17/19 01/16/21 levocetirizine 5 mg tablet 5 mg PO DAILY 12/13/19 01/16/21 atorvastatin 40 mg PO QPM 01/28/20 01/16/21 sertraline 100 mg tablet 150 mg PO DAILY 12/19/20 01/16/21 Allergies Allergy/AdvReac Type Severity Reaction Status Date / Time iohexol Allergy Dyspnea / Verified 01/16/21 15:34 [From contrast - CT, X-RAY] SOB Review of Systems Review of Systems: All systems reviewed & are unremarkable except as noted in HPI and below Constitutional: Constitutional: Reports no additional constitutional complaints, Denies chills and Denies fever(s) Eyes: Eyes: Reports no additional eye complaints ENT: Reports system reviewed and no additional complaints, except as documented Cardiovascular: Cardiovascular: Reports no additional cardiovascular complaints Respiratory: Respiratory: Reports no additional respiratory complaints Musculoskeletal: Musculoskeletal: Reports as per HPI Comments: Right wrist Integumentary/Breasts: Skin/Breast: Reports system reviewed and no additional complaints, except as docu Neurologic: Reports system reviewed and no additional complaints, except as documented Psychiatric: Psychiatric: Reports no additional psychiatric complaints Allergic/Immunologic: Allergic/Immunologic: Reports no additional allergic/immunologic complaints [facility] Past Medical History Medical History Acid reflux Anxiety Asthma Carpal tunnel syndrome Depression Hyperlipidemia Hypertension Irritable bowel syndrome Vaginal delivery X2 08/2005 Full term male 6lbs 12.5oz 06/2004 Pre term male SAB or demise. Pt. only documented that it was PT and male Surgical History Surgical History H/O total hysterectomy H/O tubal ligation History of ankle surgery Previous section X2 02/2007 male 10lbs 10oz 02/2009 male 9lbs 5oz Family History Family History Mother Breast cancer Hypertension Grandparent Breast cancer Other Breast cancer Social History Social History Smoking status: Never smoker Alcohol intake: never Substance use: never Substance use type: does not use Gender identity (if verbalized by the patient): Female Spiritual care concerns: No Comments At the time of my signature, I reviewed and agree with the nursing past medical, surgical, social, and family history. There is no relevant family history pertinent to the patient complaint. Exam Const: General: healthy appearing, no acute distress and alert Nutritional Appearance: well nourished Orientation/consciousness: patient oriented x3 Limitations: no limitations HENMT: Head: normal to inspection Eyes: Pupils: Equal, round and reactive pupils present Neck: Neck: normal visual inspection, no lymphadenopathy and no meningeal signs Chest: Chest palpation & inspection: normal inspection of the chest Resp: Effort & Inspection: normal respiratory effort Cardio: Rate: regular rate Rhythm: regular rhythm Back/Spine/Pelvis: Back: no CVA tenderness Skin: General skin exam: normal color Rashes: no rashes Wounds: no wounds Neuro: General: patient oriented x3, moves all extremities, no meningeal signs and no foc
== END 2021-01-16 16:00 | disposition home or self-care (01) ==
PROVIDERS: Emergency Provider Nurse Practitioner; PCP Family Medicine
DX: M25.531 Pain in right wrist (principal); K21.9 Gastro-esophageal reflux disease without esophagitis; F41.9 Anxiety disorder, unspecified; J45.909 Unspecified asthma, uncomplicated; F32.9 Major depressive disorder, single episode, unspecified; E78.5 Hyperlipidemia, unspecified; I10 Essential (primary) hypertension
CPT/HCPCS: 73110; 99213; G0463

== ENCOUNTER → 2021-01-27 08:14 | Outpatient (CLI) | payer BC, MEDICAID, SELFPAY ==
--- NOTE | ~2021-01-27 | XR_ITS ---
EXAMINATION: XR wrist RT min 3V EXAM DATE: 01/27/2021 08:39 INDICATION: Continuing rt wrist pain. Ordering Doctor Requested clinch fist . TECHNIQUE: Right wrist frontal with clenched fist, frontal with ulnar deviation, oblique and lateral projections obtained and reviewed. Comparison is made to prior examination from 01/16/2021. FINDINGS: Right wrist scapholunate joint space is maintained. There are no acute fractures or disloca tions identified. There is no subcutaneous gas. The soft tissue is unremarkable. There are no rad iopaque foreign bodies. There are no bony erosions identified. There is no significant interval ch cassandra. IMPRESSION: 1. Unremarkable right wrist exam. Reviewed, dictated and finalized at location B.
== END ==
PROVIDERS: PCP Family Medicine
DX: M25.531 Pain in right wrist (principal)
CPT/HCPCS: 73110

== ENCOUNTER 2021-04-23 09:29 | Outpatient (RCR) | payer BC, MEDICAID, SELFPAY ==
[2021-04-23 09:40] VITALS: BMI 41.6
== END 2021-07-13 13:59 | disposition home or self-care (01) ==
LOC: ANHDMC 09:29
PROVIDERS: PCP Family Medicine; Visit Provider Family Medicine
DX: E78.5 Hyperlipidemia, unspecified (principal); Z71.3 Dietary counseling and surveillance
CPT/HCPCS: 97802

== ENCOUNTER 2021-06-27 08:56 | Outpatient (CLI) | payer BC, OTHER, SELFPAY ==
--- NOTE | ~2021-06-27 | MM_ITS ---
EXAMINATION: MM screening [facility] BI w aj HISTORY: Screening mammogram TECHNIQUE: Craniocaudal and mediolateral oblique 3-D tomosynthesis images were obtained and synthetic 2-D images were generated. CAD analysis was submitted and interpreted. COMPARISON: 05/23/2020, 03/22/2019 bilateral screening mammogram examinations BREAST PARENCHYMAL COMPOSITION: There are scattered areas of fibroglandular density. FINDINGS: There is no evidence of suspicious mass, calcification, or architectural distortion to sugg est malignancy in either breast. There has been no suspicious interval change. IMPRESSION: 1. No mammographic evidence of malignancy. 2. Recommend routine screening mammography in one year. BI-RADS Category 1: Negative Reviewed, dictated and finalized at location A. RD CHANGER TESTER
== END 2021-06-27 08:57 | disposition home or self-care (01) ==
LOC: ANHIMG 09:01
PROVIDERS: PCP Family Medicine; Visit Provider Obstetrics & Gynecology
DX: Z12.31 Encounter for screening mammogram for malignant neoplasm of breast (principal)
CPT/HCPCS: 77063; 77067

== ENCOUNTER 2022-03-08 09:16 | Outpatient (CLI) | payer BC, OTHER, SELFPAY ==
--- NOTE | ~2022-03-08 | XR_ITS ---
EXAMINATION: XR chest 2V DATE: 03/08/2022 09:37 INDICATION: Upper respiratory infection, unspecified. TECHNIQUE: Frontal and lateral views of the chest were obtained. COMPARISON: Chest 2 views 01/02/2021, chest CT 01/02/2021 FINDINGS: The chest demonstrates clear lungs without pneumonia, pleural effusion, or pneumothorax. Th e heart size is normal. IMPRESSION: 1. No acute cardiopulmonary disease. Reviewed, dictated and finalized at location A.
== END 2022-03-08 09:17 | disposition home or self-care (01) ==
PROVIDERS: PCP Family Medicine; Visit Provider Physician Assistant
DX: J06.9 Acute upper respiratory infection, unspecified (principal)
CPT/HCPCS: 71046

== ENCOUNTER 2022-11-10 11:06 | Emergency (ER) | payer BC, OTHER, SELFPAY | END 2022-11-10 11:17 | disposition left against medical advice (07) | PROVIDERS: Emergency Provider Internal Medicine Hematology & Oncology; PCP Family Medicine | DX: Z53.21 Procedure and treatment not carried out due to patient leaving prior to being seen by health care provider (principal) | CPT/HCPCS: 99199 ==

== ENCOUNTER 2023-05-25 19:02 | Emergency (ER) | payer BC, SELFPAY ==
[2023-05-25 19:13] VITALS: BP 152/104; PULSE 80; RESP 18; TEMP 36.5; O2SAT 100
[2023-05-26 00:07] VITALS: BP 155/90; PULSE 77; RESP 16; TEMP 36.4; O2SAT 100
--- NOTE | 2023-05-26 00:45 | ED.UPPEXIN ---
HPI - Extremity Injury (Upper) General Chief Complaint: Extremity Injury, Upper Stated Complaint: palm of right hand swelling/pain Time Seen by Provider: 05/26/23 00:04 Source: patient Limitations: no limitations History of Present Illness HPI narrative: Patient is a 42-year-old female presents to the emergency department complaining of a bump and pain to her right palm of her hand that has been present since Tuesday and not gone away. Patient denies any precipitating injury. Patient denies any history of this in the past. Patient but she has been in normal state of health without any difficulty breathing or chest pain or fevers or any bumps anywhere else. Patient is to history of carpal tunnel surgery on both upper extremities. Patient denies any new numbness or weakness. Related Data Home Medications Medication Instructions Recorded Confirmed lorazepam 0.5 mg tablet 0.5 mg PO DAILY PRN Anxiety 08/17/19 05/27/22 atorvastatin 40 mg tablet 40 mg PO QPM 01/28/20 05/27/22 sertraline 100 mg tablet 150 mg PO DAILY 12/19/20 05/27/22 albuterol sulfate 90 mcg/actuation 1 inh inhalation Q4-6H PRN 05/27/22 05/27/22 breath activated powder inhaler budesonide-formoterol HFA 80 1 inh inhalation TID 05/27/22 05/27/22 mcg-4.5 mcg/actuation aerosol inhaler (Symbicort) fluticasone propionate 50 1 spray intranasal DAILY 05/27/22 05/27/22 mcg/actuation nasal spray,suspension montelukast 10 mg tablet 10 mg PO DAILY 05/27/22 05/27/22 Allergies Allergy/AdvReac Type Severity Reaction Status Date / Time iohexol Allergy Dyspnea / Verified 05/27/22 10:24 [From contrast - CT, X-RAY] SOB Review of Systems Review of Systems: A 10 system review of systems was completed on the patient and is negative except for what is stated in the HPI. Nursing and ancillary documentation was reviewed. [facility] Past Medical History Medical History Acid reflux Anxiety Asthma Carpal tunnel syndrome Depression Hyperlipidemia Hypertension Irritable bowel syndrome Vaginal delivery X2 08/2005 Full term male 6lbs 12.5oz 06/2004 Pre term male SAB or demise. Pt. only documented that it was PT and male Surgical History Surgical History H/O total hysterectomy H/O tubal ligation History of ankle surgery History of carpal tunnel surgery Previous section X2 02/2007 male 10lbs 10oz 02/2009 male 9lbs 5oz Family History Family History Mother Breast cancer Hypertension Grandparent Breast cancer Other Breast cancer Social History Social History Smoking status: Never smoker Alcohol intake: never Substance use: never Substance use type: does not use Lack of Transportation: No Lack of Food: Never True Current Housing: I Have Housing Concerned About Future Housing: No Difficulty Paying Gas/Electric Bills: No Difficulty Paying for Meds: No Currently Unemployed: No Education: Master's Degree or Higher Difficulty w/ Childcare or Family Care: No Living arrangements: with family Gender identity (if verbalized by the patient): Female Spiritual care concerns: No Comments At time of signature, I have reviewed and agree with nursing past medical, surgical, social and family history unless otherwise noted. Please see the nursing chart for further information. There is no relevant family history pertinent to the presenting complaint. Exam Narrative: CONST: No acute distress. Well nourished. HENMT: Head is normocephalic and atraumatic. Moist mucous membranes. EYES: No conjunctival icterus, injection, or pallor. NECK: No meningeal signs. RESP: Able to speak in full sentences. Normal respiratory effort. CTAB. CARDIO: Regular rate. Regular rhythm. 2+ DP and radial pu
== END 2023-05-26 02:10 | disposition home or self-care (01) ==
PROVIDERS: Emergency Provider Student in an Organized Health Care Education/Training Program; PCP Family Medicine
DX: S60.521A Blister (nonthermal) of right hand, initial encounter (principal); X58.XXXA Exposure to other specified factors, initial encounter; K21.9 Gastro-esophageal reflux disease without esophagitis; F41.9 Anxiety disorder, unspecified; J45.909 Unspecified asthma, uncomplicated; F32.A Depression, unspecified; I10 Essential (primary) hypertension; E78.5 Hyperlipidemia, unspecified
CPT/HCPCS: 99283

== ENCOUNTER 2023-06-16 11:22 | Outpatient (CLI) | payer BC, MEDICAID, SELFPAY ==
[2023-06-19 12:52] LABS: FSH 43.8 mIU/mL (***); Progesterone <0.2 ng/mL (***)
[2023-06-24 23:47] LABS: Estradiol, Ultrasensitive 39 pg/mL
== END 2023-06-16 11:23 | disposition home or self-care (01) ==
LOC: ANHLAB 11:28
PROVIDERS: PCP Family Medicine; Visit Provider Obstetrics & Gynecology
DX: N95.1 Menopausal and female climacteric states (principal)
CPT/HCPCS: 36415; 82670; 83001; 84144; 84443

== ENCOUNTER 2023-07-21 11:17 | Outpatient (CLI) | payer BC, MEDICAID, SELFPAY ==
--- NOTE | ~2023-07-21 | US_ITS ---
EXAMINATION: US venous doppler LE RT DATE: 07/21/2023 12:20 INDICATION: Right lower limb pain. TECHNIQUE: Grayscale ultrasound images without and with compression and Doppler ultrasound images of the right lower extremity veins were obtained. COMPARISON: None. FINDINGS: The visualized portions of right common femoral vein, profunda (deep) femoral vein, femoral vein, pop liteal vein, peroneal veins, posterior tibial veins, and greater saphenous vein outflow are patent. IMPRESSION: 1. No deep venous thrombosis. Reviewed, dictated and finalized at location A.
== END 2023-07-21 11:18 | disposition home or self-care (01) ==
LOC: ANHIMG 11:20
PROVIDERS: PCP Family Medicine; Visit Provider Family Medicine
DX: M79.604 Pain in right leg (principal)
CPT/HCPCS: 93971

== ENCOUNTER 2024-03-07 11:22 | Emergency (ER) | payer BC, MEDICAID, SELFPAY ==
--- NOTE | ~2024-03-07 | XR_ITS ---
EXAMINATION: XR chest 2V DATE: 03/07/2024 11:52 INDICATION: Shortness of breath and cough TECHNIQUE: PA and lateral views of the chest were obtained. COMPARISON: Chest radiograph dated 03/08/2022 FINDINGS: The lungs remain clear with no focal airspace opacities, pulmonary edema, pleural effusion or pneumot horax. The cardiomediastinal silhouette is normal. Visualized bones and soft tissues are unremarkable . IMPRESSION: 1. No acute cardiopulmonary disease. Reviewed, dictated and finalized at location A.
--- NOTE | 2024-03-07 11:29 | ED.URI ---
HPI - URI/Sore Throat General Chief Complaint: Upper Respiratory Infection Stated Complaint: Fever/Cough Time Seen by Provider: 03/07/24 11:38 Source: patient, RN notes reviewed and old records reviewed Mode of arrival: ambulatory Limitations: no limitations History of Present Illness HPI Narrative: 43-year-old female presents to the [facility] with complaints of a nonproductive cough since . Reports that both of her sons were diagnosed with ?walking pneumonia. ? Patient states that she does get shortness of breath with exertion. Denies any chest pain. Treatments prior to arrival: none Related Data Home Medications Medication Instructions Recorded Confirmed lorazepam 0.5 mg tablet 0.5 mg PO DAILY PRN Anxiety 08/17/19 03/07/24 atorvastatin 40 mg tablet 80 mg PO QPM 01/28/20 03/07/24 albuterol sulfate 90 mcg/actuation 1 inh inhalation Q4-6H PRN Wheezing 05/27/22 03/07/24 breath activated powder inhaler budesonide-formoterol HFA 80 1 inh inhalation TID 05/27/22 03/07/24 mcg-4.5 mcg/actuation aerosol inhaler (Symbicort) montelukast 10 mg tablet 10 mg PO DAILY 05/27/22 03/07/24 citalopram 10 mg tablet 10 mg PO QAM 03/07/24 03/07/24 Allergies Allergy/AdvReac Type Severity Reaction Status Date / Time iohexol Allergy Dyspnea / Verified 03/07/24 11:33 [From contrast - CT, X-RAY] SOB Review of Systems Review of Systems: All systems reviewed & are unremarkable except as noted in HPI and below Constitutional: Constitutional: Reports no additional constitutional complaints ENT: Reports system reviewed and no additional complaints, except as documented Cardiovascular: Cardiovascular: Reports no additional cardiovascular complaints, Denies chest pain and Denies dyspnea Respiratory: Respiratory: Reports as per HPI, Denies chest congestion, Reports cough and Reports dyspnea Gastrointestinal: Gastrointestinal: Reports no additional gastrointestinal complaints, Denies abdominal pain, Denies nausea and Denies vomiting Musculoskeletal: Musculoskeletal: Reports no additional musculoskeletal complaints Integumentary/Breasts: Skin/Breast: Reports system reviewed and no additional complaints, except as docu PMFSH Past Medical History Medical History Acid reflux Anxiety Asthma Carpal tunnel syndrome Hyperlipidemia Hypertension Irritable bowel syndrome Vaginal delivery X2 08/2005 Full term male 6lbs 12.5oz 06/2004 Pre term male SAB or demise. Pt. only documented that it was PT and male Surgical History Surgical History H/O total hysterectomy H/O tubal ligation History of ankle surgery History of carpal tunnel surgery Previous section X2 02/2007 male 10lbs 10oz 02/2009 male 9lbs 5oz Family History Family History Mother Breast cancer Hypertension Grandparent Breast cancer Other Breast cancer Social History Social History Smoking status: Never smoker Alcohol intake: never Substance use: never Substance use type: does not use Lack of Transportation: No Lack of Food: Never True Current Housing: I Have Housing Concerned About Future Housing: No Difficulty Paying Gas/Electric Bills: No Difficulty Paying for Meds: No Currently Unemployed: No Education: Master's Degree or Higher Difficulty w/ Childcare or Family Care: No Living arrangements: with family Gender identity (if verbalized by the patient): Female Spiritual care concerns: No Comments At the time of my signature, I reviewed and agree with the nursing past medical, surgical, social, and family history. There is no relevant family history pertinent to the patient complaint. Exam Const: General: cooperative, healthy appearing, comfortable, no acute distress, well developed, alert and well nourished Nutritional Appearance: well nourished and obese Orientation/consciousness: patient oriented x3 Limitations: no limitations HENMT: Head: normal to inspection Ears: hearing grossly normal bilaterally, external ears normal, TM's normal bilaterally, EAC's normal, mastoids normal and no periauricular adenopathy Face/Nose/Sinus: Normal external nose present, normal facial exam and face symmetric Face and sinus: normal facial exam and face symmetric Mouth: Yes Normal oral and palatal mucosa present, Yes lip normal and Yes tongue normal Throat: posterior oropharynx normal, uvula midline and no uvular edema Eyes: General: appearance normal, both eyes and all related structures Alignment and Position: alignment normal Periorbital: periorbital findings normal Neck: Neck: normal visual inspection, full ROM, no lymphadenopathy and no meningeal signs Chest: Chest palpation & inspection: normal inspection of the chest Resp: Effort & Inspection: normal respiratory effort and able to speak in complete sentences Auscultation: clear to auscultation bilaterally, no crackles, no rales, no rhonchi and no wheezes Cardio: Rate: regular rate Skin: General skin exam: normal color and no rashes or lesions noted Lesions: no lesions Rashes: no rashes Wounds: no wounds Neuro: General: patient oriented x3, gait normal, tone normal, moves all extremities and no meningeal signs Cognition (Neuro): normal cognition Speech: normal speech Gait exam (Neuro): Normal gait present Extrem: General: normal to inspection, full ROM, capillary refill normal and normal gait Psych: Appearance: grossly normal and well kempt Mental Status: mental status grossly normal Speech and movement: Normal speech and movement present and Clear speech present Affect: normal affect Attitude: cooperative Course Course Level of Care: Express Care Visit Vital Signs Vital signs: Vital Signs Temperature 98.3 F 03/07/24 11:34 Pulse Rate 73 03/07/24 11:34 Respiratory Rate 20 03/07/24 11:34 Blood Pressure 151/101 H 03/07/24 11:34 Pulse Oximetry 100 03/07/24 11:34 Oxygen Delivery Room Air 03/07/24 11:34 Temperature 98.3 F 03/07/24 11:34 Pulse Rate 73 03/07/24 11:34 Respiratory Rate 20 03/07/24 11:34 Blood Pressure 151/101 H 03/07/24 11:34 Pulse Oximetry 100 03/07/24 11:34 Oxygen Delivery Room Air 03/07/24 11:34 Reviewed MDM - URI/Sore Throat MDM Narrative Medical decision making narrative: Patient sitting comfortably in exam room. Nontoxic, vitals stable except pressure mildly elevated Patient presents with concerns for pneumonia, chest x-ray negative Patient appropriate for outpatient treatment with viral URI Discharge instructions reviewed with patient, as well as provided in writing per nursing staff. The instructions also include specific and strict return/GO TO THE ER as well as f/u information. All questions have been answered, and the patient deny any further questions with discharge and discharge plan. Some parts of this dictation were generated by voice recognition software and may contain typographical and/or grammatical inaccuracies. Differential Diagnosis Differential diagnosis: Likely upper respiratory infection, otitis media, sinusitis, viral infection and bronchitis Imaging Data Radiologist's impression: EXAMINATION: XR chest 2V DATE: 03/07/2024 11:52 INDICATION: Shortness of breath and cough TECHNIQUE: PA and lateral views of the chest were obtained. COMPARISON: Chest radiograph dated 03/08/2022 FINDINGS: The lungs remain clear with no focal airspace opacities, pulmonary edema, pleural effusion or pneumothorax. The cardiomediastinal silhouette is normal. Visualized bones and soft tissues are unremarkable. IMPRESSION: 1. No acute cardiopulmonary disease. Critical Care Time Critical Care Time Critical Care Time: No Discharge Plan Discharge Clinical Impression: Upper respiratory infection Qualifiers: URI type: unspecified viral URI Qualified Code(s): J06.9 - Acute upper respiratory infection, unspecified Patient Disposition: Home, Self-Care Condition: Stable Instructions: Antibiotic Form, Upper Respiratory Infection (ED), Acute Bronchitis (ED) Additional Instructions: Today your x-ray did not show signs of a pneumonia. Today your blood pressure was 151/101. Is important to follow-up with primary care provider within 2 weeks to have this rechecked. Your symptoms are likely due to a viral illness, which is not treated with antibiotics. Viral symptoms typically are the worst for 7-10 days, your cough can linger for several weeks -Alternate Tylenol and Motrin per package directions for fever or pain. -Antihistamine medication such as Benadryl at night and Zyrtec/Claritin/Elizabeth during the day can help improve symptoms. -doing daily nasal irrigations can help relieve pressure your sinuses. Things like a Neti pot -Use Flonase twice a day for 5 days then daily to help reduce the inflammation and dry up your sinuses. -You can also use Mucinex. Be sure to drink plenty of water with this medication at least 8 ounces with every dose and it is important to drink 8 to 10 glasses of water per day. Water is a natural decongestant -Eat and drink things that are easy to swallow, like tea or soup, or popsicles. -Oral rinses such as: Salt water gargles and/or may use topical anesthetic (eg. Chloraseptic spray) or lozenges to relieve dryness or throat pain). -Frequent hand washing or hand risk control analyst is one of the best ways to prevent spread of infection. -Using a vaporizer or humidifier at night will also help thin secretions and help with coughing up phlegm. -Follow up with primary care provider in 3-5 days if condition is not improving - For new or worsening symptoms go directly to the nearest ER Patient Language: Nepalese Prescriptions: New albuterol sulfate 90 mcg/actuation HFA aerosol inhaler 2 puff inhalation QID PRN (Reason: shortness of breath or wheezing) Qty: 6.7 0RF No Action citalopram 10 mg tablet 10 mg PO QAM montelukast 10 mg tablet 10 mg PO DAILY budesonide-formoterol [Symbicort] 80-4.5 mcg/actuation HFA aerosol inhaler 1 inh inhalation TID albuterol sulfate 90 mcg/actuation aerosol powdr breath activated 1 inh inhalation Q4-6H PRN (Reason: Wheezing) lorazepam 0.5 mg tablet 0.5 mg PO DAILY PRN (Reason: Anxiety) atorvastatin 40 mg tablet 80 mg PO QPM estradiol 2 mg tablet 2 mg PO DAILY Qty: 90 2RF Follow-up/Referrals: Jose,Kori Santiago MD [Primary Care Provider] - 2 Weeks ([facility] follow up blood pressure check, 151/101) Stand Alone Forms: Work/School Release IP Time of Disposition: 12:05
[2024-03-07 11:34] VITALS: BP 151/101; PULSE 73; RESP 20; TEMP 36.8; O2SAT 100
== END 2024-03-07 12:08 | disposition home or self-care (01) ==
PROVIDERS: Emergency Provider Nurse Practitioner; PCP Family Medicine
DX: J06.9 Acute upper respiratory infection, unspecified (principal); K21.9 Gastro-esophageal reflux disease without esophagitis; J45.909 Unspecified asthma, uncomplicated; E78.5 Hyperlipidemia, unspecified; I10 Essential (primary) hypertension; F41.9 Anxiety disorder, unspecified
CPT/HCPCS: 71046; 99213; G0463

== ENCOUNTER 2024-12-08 08:15 | Outpatient (CLI) | payer BC, SELFPAY ==
--- NOTE | ~2024-12-08 | MM_ITS ---
EXAMINATION: MM screening lazaro BI w aj HISTORY: Screening TECHNIQUE: Craniocaudal and mediolateral oblique 3-D tomosynthesis images were obtained and synthetic 2-D images were generated. CAD analysis was submitted and interpreted. COMPARISON: Comparison to multiple prior studies sequentially, with oldest reviewed study dated 03/09. BREAST PARENCHYMAL COMPOSITION: There are scattered areas of fibroglandular density. FINDINGS: There is no evidence of suspicious mass, calcification, or architectural distortion to sug gest malignancy in either breast. IMPRESSION: 1. No mammographic evidence of malignancy. 2. Recommend routine screening mammography in one year. BI-RADS Category 1: Negative Reviewed, dictated and finalized at location B.
== END 2024-12-08 08:16 | disposition home or self-care (01) ==
LOC: MICIMG 08:15
PROVIDERS: PCP Obstetrics & Gynecology; Visit Provider Obstetrics & Gynecology
DX: Z12.31 Encounter for screening mammogram for malignant neoplasm of breast (principal)
CPT/HCPCS: 77063; 77067